=== PATIENT | female | born 1990 | race African-American/Black ===

== ENCOUNTER 2016-05-06 10:21 | Emergency (ER) | payer SELFPAY | END 2016-05-06 10:50 | disposition home or self-care (01) | LOC: ER 10:21 | DX: L02.214 Cutaneous abscess of groin (principal); L29.9 Pruritus, unspecified; J45.909 Unspecified asthma, uncomplicated; F17.200 Nicotine dependence, unspecified, uncomplicated; Z88.1 Allergy status to other antibiotic agents | CPT/HCPCS: 99283 ==